=== PATIENT | male | born 1980 | race Caucasian/White ===

== ENCOUNTER → 2018-08-19 | Outpatient (CLI) | payer BC ==
[~2018-08-19] MED LIST: ALBU90OI INH
== END | disposition home or self-care (01) ==
LOC: LAB SHORT 10:00 → LAB 10:00
DX: R19.7 Diarrhea, unspecified (principal)
CPT/HCPCS: 87015; 87045; 87046; 87205; 87899

== ENCOUNTER → 2019-02-26 | Outpatient (CLI) | payer BC ==
[2019-02-26 18:08] LABS: Adenovirus F 40/41 Not Detected (NOT DETECT); Astrovirus Not Detected (NOT DETECT); Campylobacter Sp Not Detected (NOT DETECT); Cryptosporidium Not Detected (NOT DETECT); Cyclospora Cayetanensis Not Detected (NOT DETECT); E. Coli O157 Not Detected (NOT DETECT); Entamoeba Histolytica Not Detected (NOT DETECT); Enteroaggregative E. coli-EAEC Detected (NOT DETECT); Enteropathogenic E. coli-EPEC Not Detected (NOT DETECT); Enterotoxigenic E. coli-ETEC Not Detected (NOT DETECT); Giardia Lamblia Not Detected (NOT DETECT); Norovirus GI/GII Not Detected (NOT DETECT); Plesiomonas Shigelloides Not Detected (NOT DETECT); Rotavirus A Not Detected (NOT DETECT); Salmonella Sp Not Detected (NOT DETECT); Sapovirus Detected (NOT DETECT); Shiga Toxin-prod E. coli-STEC Not Detected (NOT DETECT); Shigella/Enteroin E. coli-EIEC Not Detected (NOT DETECT); Vibrio Cholerae Not Detected (NOT DETECT); Vibrio Sp Not Detected (NOT DETECT); Yersinia Enterocolitica Not Detected (NOT DETECT)
== END | disposition home or self-care (01) ==
LOC: LAB 11:58 → LAB SHORT 11:58
PROVIDERS: Emergency Medicine
DX: R19.7 Diarrhea, unspecified (principal)
CPT/HCPCS: 0097U

== ENCOUNTER 2021-02-26 13:05 | Emergency (ER) | payer BC ==
[~2021-02-26] VITALS: Ht 182.9 cm; Wt 104.3 kg
== END 2021-02-26 13:58 | disposition left against medical advice (07) ==
LOC: ER 13:05
DX: R20.0 Anesthesia of skin (principal); R51.9 Headache, unspecified
CPT/HCPCS: 99282

== ENCOUNTER 2024-07-11 09:27 | Day surgery (SDC) | payer SELFPAY ==
[~2024-07-11] VITALS: Ht 182.9 cm; Wt 118.7 kg
[~2024-07-11 09:27] MED LIST changes: +EPINEPhrine HCl 1 MG / ML 30ML Vial ONE; +Lactated Ringer's 1,000 ML IV ONE; +Lidocaine 1%-Epineph 1:200000 30 ML SDV ONE
[2024-07-11] MEDS ORDERED: Tranexamic Acid 100 ML IV ONE (09:37)
[2024-07-11] MEDS ORDERED: ANASTROZOLE1 M7 (09:58)
[2024-07-11] MEDS ORDERED: THYROID (09:59)
[2024-07-11] MEDS ORDERED: DEPO-TESTO200 MG/1 M (09:59)
[2024-07-11] MEDS ORDERED: Lactated Ringer's 1,000 ML IV ONE ×2 (10:06→12:11)
[2024-07-11] MEDS ORDERED: propofoL 40 ML IV ONE (10:39)
[2024-07-11] MEDS ORDERED: FentaNYL Citrate 50 MCG/ML 2 ML Injection ONE ×3 (10:39→13:27)
[2024-07-11] MEDS ORDERED: Rocuronium Bromide 10 MG/ML 5ML Injection IV ONE (10:39)
[2024-07-11] MEDS ORDERED: Ondansetron HCl 2 MG / ML 2ML Vial ONE (11:02)
[2024-07-11] MEDS ORDERED: Dexamethasone Sod Phos 10 MG/ML 1ML VIAL ONE (11:02)
--- NOTE | 2024-07-11 13:32 | NUR ---
07/11/[address] AT BEDSIDE
[2024-07-11] MEDS ORDERED: Ketorolac Tromethamine 30mg Vial ONE (13:55)
--- NOTE | 2024-07-11 14:02 | NUR ---
07/11/24 1402 Macrina Coon PATIENT C/O HEADACHE, MEDICATION GIVEN. LIGHTS DIMMED IN ROOM. PATIENT SITTING UP IN BED, DRINKING FLUIDS. PATIENT TOLERATING ORAL FLUIDS WELL. PATIENT DOES NOT WANT TO MOVE TO RECLINER YET. UPDATED PER SHANE MASTERSON.
[2024-07-11] MEDS ORDERED: HYDROmorphone HCl/Pf 1MG SYR ONE (14:09)
[2024-07-11] MEDS ORDERED: OxyCODONE HCL 5 MG TAB ONE (14:46)
[2024-07-11 14:53] VITALS: BP 131/89
== END 2024-07-11 15:05 | disposition home or self-care (01) ==
LOC: ORSCSDS 09:27
PROVIDERS: Otolaryngology
PROC: 09DR4ZZ Extraction of Left Maxillary Sinus, Percutaneous Endoscopic Approach (ICD-10-PCS; principal; 2024-07-11 11:15)
PROC: 09SM4ZZ Reposition Nasal Septum, Percutaneous Endoscopic Approach (ICD-10-PCS; principal; 2024-07-11 11:15)
PROC: 09BL4ZZ Excision of Nasal Turbinate, Percutaneous Endoscopic Approach (ICD-10-PCS; principal; 2024-07-11 11:15)
PROC: 09DQ4ZZ Extraction of Right Maxillary Sinus, Percutaneous Endoscopic Approach (ICD-10-PCS; principal; 2024-07-11 11:15)
DX: J32.8 Other chronic sinusitis (principal); J34.2 Deviated nasal septum; J34.3 Hypertrophy of nasal turbinates; J45.909 Unspecified asthma, uncomplicated; E03.9 Hypothyroidism, unspecified; Z79.899 Other long term (current) drug therapy
CPT/HCPCS: 88305; 88311; A9270; C1713; C2625; J0171; J1100; J1171; J1885; J2405; J2704; J3010; J7120